=== PATIENT | male | born 1995 | race Caucasian/White ===

== ENCOUNTER 2019-10-25 10:06 | Emergency (ER) | payer BC, SELFPAY ==
--- NOTE | ~2019-10-25 | XR_ITS ---
XR abdomen/kub 1V 10/25/2019 11:00 INDICATION: Left lower quadrant and low back pain TECHNIQUE: KUB COMPARISON: None FINDINGS: Bowel gas pattern is normal. Moderate colonic fecal loading. There is no suspected urolithi asis. There is no evidence of free air, mass, organomegaly, ascites or obstruction. No abnormal calc jack are seen. The bones appear intact. IMPRESSION: 1: No acute abdominal abnormality identified. Reviewed, dictated and finalized at location A.
[2019-10-25 10:15] VITALS: BP 119/49; PULSE 65; RESP 18; O2SAT 99
--- NOTE | 2019-10-25 10:38 | ED.MALEGU ---
HPI - Male Genitourinary General Chief complaint: Urogenital-Male Stated complaint: pain when urinating/fatigue/back pain Time Seen by Provider: 10/25/19 10:22 Source: patient and RN notes reviewed Mode of arrival: ambulatory Limitations: no limitations History of Present Illness HPI Narrative: Patient presents today complaining of suprapubic pressure and right mid back pain that started at 3:00 this morning. States that he feels that his bladder is incompletely emptying. Reports sharp pains in the urethra with urination. Denies fever, nausea or vomiting, diarrhea or constipation, hematuria, frequency. Currently rates pain 3/10 and has tried no [id number] interventions prior to arrival. Denies any concerns for sexually transmitted infections. No history of kidney stones or pyelonephritis. Related Data Home Medications Medication Instructions Recorded Confirmed No Home Medications 10/25/19 10/25/19 Allergies Allergy/AdvReac Type Severity Reaction Status Date / Time No Known Allergies Allergy Unknown Verified 10/25/19 10:23 Review of Systems Review of Systems: Narrative: CONSTITUTIONAL: Denies body aches, fever, chills, or sweats. EYES: Denies visual changes, redness, or discharge. ENT: Denies rhinorrhea, congestion, sore throat, or otalgia. CARDIOVASCULAR: Denies chest pain, palpitations, or edema. RESPIRATORY: Denies cough or dyspnea. GASTROINTESTINAL: Denies abdominal pain, nausea, vomiting, or diarrhea. GENITOURINARY: Denies hematuria or frequency. Denies penile discharge. +Suprapubic pain, dysuria SKIN: Denies rash, itching, or wounds. MUSCULOSKELETAL: Denies joint pain, or myalgia.+Right mid back pain NEUROLOGIC: Denies headache, numbness, tingling, or weakness. PSYCH: Denies depression or anxiety. PMFSH Comments At time of signature, I have reviewed and agree with nursing past medical, surgical, social and family history unless otherwise noted. Please see nursing chart for further information. There is no relevant family history pertinent to the presenting complaint Exam Narrative: Exam Narrative: GENERAL: Well-appearing, well-nourished, and in no acute distress. HEAD: Normocephalic, atraumatic. EYES: EOMI. No redness or drainage. Conjunctivae normal. ENT: Mucous membranes pink and moist. NECK: Normal AROM. Supple. No lymphadenopathy. CHEST: No respiratory distress. Clear to auscultation. HEART: Regular rate and rhythm. No murmur appreciated. Normal peripheral pulses. ABDOMEN: Soft, nondistended, normal active bowel sounds.+Mild tenderness to the left lower quadrant, otherwise nontender. No rebound or guarding.-CVAT MUSCULOSKELETAL: No bony or muscular tenderness of the back. EXTREMITIES: Normal range of motion. No edema. SKIN: Warm, dry, no rash. Capillary refill normal. Normal skin turgor. NEURO: No focal deficits. Alert and oriented x3. Gait steady. PSYCH: Normal affect. No signs of depression or anxiety. Course Vital Signs Vital signs: Vital Signs Pulse Rate 65 10/25/19 10:15 Respiratory Rate 18 10/25/19 10:15 Blood Pressure 119/49 L 10/25/19 10:15 Pulse Oximetry 99 10/25/19 10:15 Pulse Rate 65 10/25/19 10:15 Respiratory Rate 18 10/25/19 10:15 Blood Pressure 119/49 L 10/25/19 10:15 Pulse Oximetry 99 10/25/19 10:15 Reviewed MDM - Male Genitourinary Differential Diagnosis Differential diagnosis: Likely urinary tract infection, urethritis and other (Kidney stone, pyelonephritis) Lab Data Attestation: I reviewed the patient's lab results. Labs: Urine Glucose Negative Reference Range: Negative Urine Ketone Negative Reference Range: Negative Urine Specific [place] 1.020 Reference Range:1.001-1.035 Urine Blood Negative Reference Range: Negative * * Urine pH 8.5 Reference Range
== END 2019-10-25 11:20 | disposition home or self-care (01) ==
PROVIDERS: Emergency Provider Nurse Practitioner
DX: R30.0 Dysuria (principal); K59.00 Constipation, unspecified
CPT/HCPCS: 74018; 81003; 99203; G0463

== ENCOUNTER 2024-07-28 11:11 | Emergency (ER) | payer BC, SELFPAY ==
[2024-07-28 11:29] VITALS: BP 118/71; PULSE 93; RESP 18; TEMP 37.7; O2SAT 99
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
--- OUTSIDE RECORDS SUMMARY | 2024-07-28 11:38 | XMS_ITS | Clinical Summary ---
Author Organization [facility] Address [address] [place] [address] Care Team Providers Care Senior Operations Analyst Name Role Phone Halle Pelayo MD Primary Care Provider [phone] Source Comments [facility],non-owned Affiliates and Associated Physician Practices is amultiple site organization consisting of ambulatory clinics and hospital sitesin [place], [place], [place] and [place]. This disclosure is being madepursuant to the Care Everywhere program and may not contain all information available regarding this patient. Last updated 18.[facility] Allergies No known active allergies Medications * [...] 12/04/2017 5:26 PM CDT Plan of Treatment Health Maintenance Due Date Last Done Comments HPV VACCINE (1 - Male 3-dose series) 2012 DTAP/TDAP/TD VACCINES (1 - Tdap) 2016 HEPATITIS B VACCINE (1 of 3 - 19+ 3-dose series) 2016 COVID-19 VACCINE (1 - 2023-2 5 season) 2024 INFLUENZA VACCINE (#1) 2024 DEPRESSION SCREENING 06/22/2024 ZOSTER VACCINE (1 of 2) 2047 HEPATITIS C SCREENING Completed 10/25/2013 HIV SCREENING Completed 10/25/2013 HIB VACCINE Aged Out No longer eligi ble based on patient's age to complete this topic MENINGOCOCCAL (Group B) VACCINE Aged Out No longer eligible based on patient's age to complete this topic MENINGOCOCCAL VACCINE Aged Out No nicole radha eligible based on patient's age to complete this topic PNEUMOCOCCAL VACCINE Aged Out No long er eligible based on patient's age to complete this topic Procedures Procedure Name Priority Date/Time Associated Diagnosis [...] Reactive Non Reactive 10/25/2013 11:13 AM CDT [facility] Blood BLOOD SPECIMEN / Unknown Lab Venipuncture / Unknown 10/25/2013 10:08 AM CDT 10/25/2013 10:18 AM CDT Daja Garcia APRN-CURTAINS AND DRAPERIES SALESPERSON LAB - CHEMISTR Y ORDERABLES [facility] [address] [place] [address] * HEPATITIS C ANTIBODY (10/25/2013 10:08 AM CDT) HCV Antibody Screen Non Reactive Non Reactive 10/25/2013 11:13 AM CDT [facility] Blood BLOOD SPECIMEN / Unknown Lab Venipuncture / Unknown 10/25/2013 10:08 AM CDT 10/25/2013 10:18 AM CDT Narrative [facility] - 10/25/2013 11:13 AM CDT Nonreactive - Antibodies to HCV were not detected, result does not exclude early acute HCV infection. Daja Garcia APRN-CURTAINS AND DRAPERIES SALESPERSON LAB - CHEMISTR Y ORDERABLES [facility] [address] [place] [address] from Last 3 Months or Most Recently Relevant to Health Maintenance Care Teams Senior Operations Analyst Relationship Specialty Start Date End Date Halle Pelayo MD [address] [place] [address] PCP - General Pediatrics 10/25/13
--- NOTE | 2024-07-28 11:40 | ED.URI ---
HPI - URI/Sore Throat General Chief Complaint: Upper Respiratory Infection Stated Complaint: Headache/Runny Nose/Body Aches/Fever Source: patient and RN notes reviewed Mode of arrival: ambulatory Limitations: no limitations History of Present Illness HPI Narrative: 28-year-old male presented for complaint of headache, body aches, sinus pressure/congestion, cough, fever/chills. onset yesterday. Denies sob, wheezing, n/v/d. MD elicited complaint: cough Related Data Home Medications ?Medication ?Instructions ?Recorded ?Confirmed ?Last Taken ?Type No Home Medications 10/25/19 10/25/19 Unknown History Allergies Allergy/AdvReac Type Severity Reaction Status Date / Time No Known Allergies Allergy Unknown Verified 08/24/23 10:00 Review of Systems Review of Systems: per HPI Exam Narrative: GENERAL: mildly Ill-appearing, nontoxic no acute distress. EYES: PERRLA, conjunctivae clear ENT: Mucous membranes moist. TM pearly eason with dull light reflex bilaterally; no tragal tenderness. Oropharynx erythematous without lesions or exudate, no drooling, no hoarseness, no trismus, uvula midline. NECK: Supple. No lymphadenopathy CHEST: Clear to auscultation, breath sounds equal. No wheezing, rhonchi, rales, or stridor. No respiratory distress, speaks in full sentences. HEART: Regular rate and rhythm. No murmur heard. SKIN: Warm, dry, no rash. NEURO: Alert and oriented x3. PSYCH: Normal mood and affect Course Course Emergency Course: Patient is aware of diagnosis, understands and agrees to treatment plan. Anticipatory guidance given. Patient agrees to follow-up as directed and is aware of reasons to seek care at the emergency department. Portions of this record may have been created with voice recognition software Level of Care: Express Care Visit Vital Signs Vital signs: Vital Signs Temperature 99.9 F H 07/28/24 11:29 Pulse Rate 93 07/28/24 11:29 Respiratory Rate 18 07/28/24 11:29 Blood Pressure 118/71 07/28/24 11:29 Pulse Oximetry 99 07/28/24 11:29 Oxygen Delivery Room Air 07/28/24 11:29 Temperature 99.9 F H 07/28/24 11:29 Pulse Rate 93 07/28/24 11:29 Respiratory Rate 18 07/28/24 11:29 Blood Pressure 118/71 07/28/24 11:29 Pulse Oximetry 99 07/28/24 11:29 Oxygen Delivery Room Air 07/28/24 11:29 reviewed MDM - URI/Sore Throat MDM Narrative Medical decision making narrative: POS flu. Discussed physical exam findings. Advised supportive measures and signs/symptoms to go to the ER. Pt is appropriate for outpt treatment and f/u. Differential Diagnosis Differential diagnosis: Likely upper respiratory infection, sinusitis, viral infection, influenza and pharyngitis Discharge Plan Discharge Clinical Impression: Influenza Patient Disposition: Home, Self-Care Condition: Stable Instructions: Antibiotic Form, Influenza (ED) Additional Instructions: Influenza positive You should avoid crowds until you are fever free for 24 hours without the use of fever reducing medications, or the symptoms are improved Rest. Drink plenty of fluids. Tylenol 1000mg every 8 hours as needed for pain/fever Recommend Flonase spray and Zyrtec (or Claritin/Mary Ann) for sinus pressure/congestion over the counter Cough syrup may cause drowsiness; avoid driving or take it at night time. Follow up with your primary care provider as needed Go to the ER for worsening symptoms or concerns Patient Language: Swedish Prescriptions: No Action No Home Medications Follow-up/Referrals: PHYSICIAN,INDUSTRIAL TECHNOLOGY EDUCATION TEACHER [Primary Care Provider] - Stand Alone Forms: Work/School Release IP Time of Disposition: 11:47
[2024-07-28 11:56] LABS: EDCOVIDSCREEN Negative (Negative); EDINFLUASCREEN Positive (Negative); EDINFLUBSCREEN Negative (Negative)
== END 2024-07-28 11:51 | disposition home or self-care (01) ==
PROVIDERS: Emergency Provider Nurse Practitioner Family
DX: J11.1 Influenza due to unidentified influenza virus with other respiratory manifestations (principal); Z20.822 Contact with and (suspected) exposure to COVID-19
CPT/HCPCS: 87426; 87804; 99212; G0463